=== PATIENT | female | born 2000 | race Caucasian/White ===

== ENCOUNTER 2021-03-31 23:03 | Emergency (ER) | payer MEDICAID ==
[~2021-03-31] VITALS: Ht 154.9 cm; Wt 56.7 kg
[2021-03-31 23:03] VITALS: BP_SYST 126
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
--- NOTE | 2021-04-01 01:00 | NUR ---
Patient transported to radiology via wheelchair, accompanied by
--- NOTE | 2021-04-01 01:26 | NUR ---
Returned from radiology, back to [facility].
--- NOTE | 2021-04-01 02:00 | NUR ---
ER Dr. Rodriguez at bedside examining patient.
[2021-04-01] MEDS ORDERED: BACITRACIN ZINC 15 GM TOPICAL OINTMENT TP ONE (02:15)
[2021-04-01] MEDS ORDERED: IBUPROFEN 600 MG TABLET PO ONE (02:15)
[2021-04-01] MEDS ORDERED: NACL 0.9% 1,000 ML IV ONE (02:15)
--- NOTE | 2021-04-01 02:20 | NUR ---
# 20 gauge angiocath placed to left ac. Use of asceptic technique. Opsite placed over site. Blood return noted. Flushed with 10 cc of normal saline. No evidence of infiltration noted. Patient tolerated well.
[2021-04-01] MEDS ORDERED: BACITRACIN 1 GM OINT TP ONE (02:42)
[2021-04-01] MEDS ORDERED: IBUPROFEN 600 MG TABLET ONE (02:46)
--- NOTE | 2021-04-01 03:20 | NUR ---
Patient ambulated to restroom with steady gait to obtain urine sample.
[2021-04-01 04:00] LABS: BILIRUBIN,URINE NEGATIVE (NEGATIVE); BLOOD, URINE NEGATIVE (NEGATIVE); CLARITY/URINE CLEAR (CLEAR); COLOR,URINE YELLOW (YELLOW); GLUCOSE,URINE NEGATIVE (NEGATIVE); KETONES,URINE 1+ (NEGATIVE); LEUKOCYTE ESTERASE ,URINE NEGATIVE (NEGATIVE); NITRITE, URINE NEGATIVE (NEGATIVE); PROTEIN URINE NEGATIVE (NEGATIVE); UROBILINOGEN,URINE 0.2 (0.2-1.0)
[2021-04-01] MEDS ORDERED: ACET1TAB23 PO (04:29)
[2021-04-01] MEDS ORDERED: IBUP-1969 PO (04:29)
[2021-04-01] MEDS ORDERED: MUPI15CR12 TP (04:29)
[2021-04-01 04:39] VITALS: BP_SYST 127
--- NOTE | 2021-04-01 04:39 | NUR ---
Patient given written and verbal discharge instructions and verbalizes understanding. ER MD discussed with patient the results and treatment provided. Patient in stable condition. ID arm band removed. IV catheter removed intact and dressing applied, no active bleeding. Rx of tylenol-codiene 3, ibuprofen,mupirocin given. Patient educated on pain management and to follow up with PMD. Pain Scale 0/10. Opportunity for questions provided and answered. Medication side effect fact sheet provided.
== END 2021-04-01 04:39 | disposition home or self-care (01) ==
LOC: SED 23:03
DX: S06.0X0A Concussion without loss of consciousness, initial encounter (principal); S00.33XA Contusion of nose, initial encounter; Y04.0XXA Assault by unarmed brawl or fight, initial encounter; Y93.89 Activity, other specified; Y92.89 Other specified places as the place of occurrence of the external cause; Y99.8 Other external cause status
CPT/HCPCS: 70450; 76376; 81003; 81025; 96360; 99284; J7030